=== PATIENT | female | born 1995 | race Caucasian/White ===

== ENCOUNTER 2020-09-06 23:17 | Emergency (ER) | payer MEDICAID ==
[~2020-09-06] VITALS: Ht 157.5 cm; Wt 45.5 kg
[2020-09-07 00:37] VITALS: BP 115/75
== END 2020-09-07 00:39 ==
LOC: ER 23:18
DX: S01.01XA Laceration without foreign body of scalp, initial encounter (principal); F10.129 Alcohol abuse with intoxication, unspecified; X58.XXXA Exposure to other specified factors, initial encounter; Y93.89 Activity, other specified; Y92.89 Other specified places as the place of occurrence of the external cause; Y99.8 Other external cause status; Y90.0 Blood alcohol level of less than 20 mg/100 ml
CPT/HCPCS: 70450; 71045; 72125; 73564; 99285